=== PATIENT | male | born 1940 | race Caucasian/White ===

== ENCOUNTER → 2021-10-07 | Day surgery (SDC) | payer MEDICARE ==
[~2021-10-07] VITALS: Ht 188 cm; Wt 94.4 kg
[~2021-10-07] MED LIST: ASPIRIN EC81 MG PO; CRESTOR10 MG PO; GLUCOTROL XL5 MG PO; METFORMIN HCL500 MG PO; MICARDIS HCT 81 EAC1 PO
[2021-10-07 10:11] LABS: HCT 46.8 % (42.0-52.0); HGB 15.7 g/dl (13.2-18.0); MCH 29.7 pg (25.0-31.0); MCHC 33.5 g/dL (32.0-36.0); MCV 88.5 fL (78.0-100.0); MPV 11.4 fL (6.0-9.5); RBC 5.29 M/uL (4.70-6.00); WBC 5.5 K/uL (4.0-10.5)
[2021-10-07 10:22] LABS: BILIRUBIN - TOTAL 0.5 mg/dL (0.2-1.0); BUN/CREAT RATIO (CALC) 20.8 RATIO; CREATININE 0.96 mg/dL (0.67-1.17); GLOBULIN (CALCULATION) 3.9 g/dL; POTASSIUM 4.1 mmol/L (3.5-5.1); TOTAL PROTEIN 7.9 g/dL (6.4-8.2)
== END | disposition home or self-care (01) ==
LOC: FAS 08:46
PROVIDERS: Surgery
DX: Z12.11 Encounter for screening for malignant neoplasm of colon (principal); D12.0 Benign neoplasm of cecum; K57.30 Diverticulosis of large intestine without perforation or abscess without bleeding; I10 Essential (primary) hypertension; E11.9 Type 2 diabetes mellitus without complications; I25.10 Atherosclerotic heart disease of native coronary artery without angina pectoris; Z86.010 Personal history of colon polyps; Z79.82 Long term (current) use of aspirin; Z79.84 Long term (current) use of oral hypoglycemic drugs; Z79.899 Other long term (current) drug therapy; Z95.818 Presence of other cardiac implants and grafts; Z87.891 Personal history of nicotine dependence
CPT/HCPCS: 36415; 80053; J2704; J7120

== ENCOUNTER 2021-12-21 04:26 | Day surgery (SDCO) | payer MEDICARE ==
[~2021-12-21] VITALS: Ht 190.5 cm; Wt 93.6 kg
[2021-12-21 04:50] LABS: BASOPHIL 0.7 % (0-2); EOSINOPHIL 1.8 % (0-7); HCT 44.1 % (42.0-52.0); HGB 14.4 g/dl (13.2-18.0); LYMPHOCYTE 18.5 % (15-48); MCHC 32.7 g/dL (32.0-36.0); MCV 88.9 fL (78.0-100.0); MPV 10.4 fL (6.0-9.5); NEUTROPHIL 69.5 % (41-80); NRBC 0; PLT 169 K/uL (150-400); RBC 4.96 M/uL (4.70-6.00); RDW 13.4 % (11.5-14.0); WBC 9.1 K/uL (4.0-10.5)
[2021-12-21 04:59] LABS: INR 0.98 (0.9-1.2); PROTHROMBIN TIME 12.4 SECONDS (11.8-13.4)
[2021-12-21 05:23] LABS: ALBUMIN 3.8 g/dL (3.4-5.0); BILIRUBIN - TOTAL 0.3 mg/dL (0.2-1.0); GLOBULIN (CALCULATION) 3.4 g/dL; MAGNESIUM 1.6 mg/dL (1.8-2.4); TOTAL PROTEIN 7.2 g/dL (6.4-8.2)
== END 2021-12-21 20:25 | disposition other institution (70) ==
LOC: FER 04:26 → FTCU 12:59
PROVIDERS: Emergency Medicine; ADMIT Allergy & Immunology Allergy
DX: I25.110 Atherosclerotic heart disease of native coronary artery with unstable angina pectoris (principal); I10 Essential (primary) hypertension; E11.9 Type 2 diabetes mellitus without complications; E78.5 Hyperlipidemia, unspecified; Z95.5 Presence of coronary angioplasty implant and graft; Z20.822 Contact with and (suspected) exposure to COVID-19; Z79.82 Long term (current) use of aspirin; Z79.84 Long term (current) use of oral hypoglycemic drugs; Z79.899 Other long term (current) drug therapy
CPT/HCPCS: 36415; 71045; 71275; 80053; 82962; 83036; 83735; 83880; 84145; 84443; 84484; 85025; 85610; 85730; 93005; G0378; J1170; J1644; J2270; J7120; Q9967; U0002

== ENCOUNTER 2022-01-04 18:00 | Emergency (ER) | payer MEDICARE ==
[2022-01-04 20:45] LABS: BASOPHIL 0.4 % (0-2); EOSINOPHIL 0.7 % (0-7); HCT 40.4 % (42.0-52.0); HGB 13.2 g/dl (13.2-18.0); LYMPHOCYTE 9.2 % (15-48); MCHC 32.7 g/dL (32.0-36.0); MCV 88.8 fL (78.0-100.0); MONOCYTE 8.6 % (0-12); MPV 9.7 fL (6.0-9.5); NEUTROPHIL 79.5 % (41-80); NRBC 0; PLT 431 K/uL (150-400); RBC 4.55 M/uL (4.70-6.00); RDW 13.7 % (11.5-14.0); WBC 9.6 K/uL (4.0-10.5)
[2022-01-04 21:15] LABS: ALBUMIN 2.9 g/dL (3.4-5.0); BILIRUBIN - TOTAL 0.7 mg/dL (0.2-1.0); BUN/CREAT RATIO (CALC) 19.8 RATIO; CREATININE 1.21 mg/dL (0.67-1.17); GLOBULIN (CALCULATION) 4.6 g/dL; POTASSIUM 4.6 mmol/L (3.5-5.1); TOTAL PROTEIN 7.5 g/dL (6.4-8.2)
[2022-01-05] MEDS ORDERED: VOLTAREN ARTHRI20 GM TOP (01:43)
[2022-01-05] MEDS ORDERED: KEFLEX250 MG PO (01:43)
[2022-01-05] MEDS ORDERED: PREDNISONE 20MG20 MG PO (01:43)
[2022-01-05] MEDS ORDERED: NORCO 5-325 TA1 EACH PO (01:47)
== END 2022-01-05 01:54 | disposition home or self-care (01) ==
LOC: FER 18:00
PROVIDERS: Nurse Practitioner Family
DX: M65.872 Other synovitis and tenosynovitis, left ankle and foot (principal); E11.51 Type 2 diabetes mellitus with diabetic peripheral angiopathy without gangrene; I10 Essential (primary) hypertension
CPT/HCPCS: 36415; 75635; 80053; 85025; 85379; 93971; J1030; J7040; Q9967